=== PATIENT | male | born 1945 | race Caucasian/White ===

== ENCOUNTER 2019-12-30 10:33 | Emergency (ER) | payer OTHER, SELFPAY ==
--- NOTE | ~2019-12-30 | XR_ITS ---
EXAMINATION: XR hand LT min 3V DATE: 12/30/2019 11:15 INDICATION: Left hand pain. TECHNIQUE: 3 views of left hand were obtained. COMPARISON: None. FINDINGS: There is an oblique fracture of diaphysis of third metacarpal. The distal fracture fragment demonstrates one cortical width posterior displacement, 10 degrees ulnar angulation, and 19 degrees palmar angulation. 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 IMPRESSION: 1. Oblique fracture of diaphysis of third metacarpal. Reviewed, dictated and finalized at location A.
[2019-12-30 10:54] VITALS: BP 116/80; PULSE 68; RESP 17; TEMP 36.8; O2SAT 99
--- NOTE | 2019-12-30 11:03 | ED.GENADULT ---
HPI - General Adult General Chief complaint: Extremity Injury, Upper Stated complaint: swollen hand History of Present Illness HPI narrative: Mario is a previously healthy 74M that presented to the ED ambulating by himself with pain and swelling in his right hand after a fall. He was walking yesterday morning wearing his reading glasses when he tripped and fell. He did not hit his head or neck and has no pain there. He did not lose consciousness. Before the fall there was no lightheadedness, CP or SOB. He caught himself with the dorsal aspect of his left hand. Related Data Home Medications Medication Instructions Recorded Confirmed No Home Medications 12/30/19 12/30/19 Allergies Allergy/AdvReac Type Severity Reaction Status Date / Time No Known Allergies Allergy Verified 12/30/19 10:54 Review of Systems Constitutional: Constitutional: Reports no additional constitutional complaints Eyes: Eyes: Reports no additional eye complaints Cardiovascular: Cardiovascular: Reports no additional cardiovascular complaints Respiratory: Respiratory: Reports no additional respiratory complaints Gastrointestinal: Gastrointestinal: Reports no additional gastrointestinal complaints Musculoskeletal: Musculoskeletal: Reports as per HPI Integumentary/Breasts: Skin/Breast: Reports system reviewed and no additional complaints, except as docu Neurologic: Reports system reviewed and no additional complaints, except as documented Exam Const: General: no acute distress and alert Orientation/consciousness: patient oriented x3 Limitations: No altered mental status HENMT: Head: normal to inspection Eyes: Pupils: Equal, round and reactive pupils present Neck: Neck: normal visual inspection Other: able to touch chin to each shoulder, flex and extend without pain Resp: Effort & Inspection: normal respiratory effort and not labored Other: speaks in complete sentences without distress Cardio: Rate: regular rate Other: left radial pulse intact. Good capillary refill. Skin: General skin exam: normal color Rashes: no rashes Neuro: General: patient oriented x3 and moves all extremities Other: sensation intact throughout left hand Extrem: Other: Left hand was very swollen. 5/5 cylinder inspector strength. Able to oppose thumb to each finger. TTP over the 3rd metatarsal Psych: Mental Status: mental status grossly normal Course Course Emergency Course: Mario was seen and evaluated. Ordered radiographs. Denied meds for pain. Radiographs showed: EXAMINATION: XR hand LT min 3V DATE: 12/30/2019 11:15 INDICATION: Left hand pain. TECHNIQUE: 3 views of left hand were obtained. COMPARISON: None. FINDINGS: There is an oblique fracture of diaphysis of third metacarpal. The distal fracture fragment demonstrates one cortical width posterior displacement, 10 degrees ulnar angulation, and 19 degrees palmar angulation. 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 IMPRESSION: 1. Oblique fracture of diaphysis of third metacarpal. I [facility] that [facility] will contact the patient for an appointment tomorrow. He gave the number [phone] to schedule as well. He was placed in an OCL and discharged home. Vital Signs Vital signs: Vital Signs Temperature 36.8 C 12/30/19 10:54 Pulse Rate 68 12/30/19 10:54 Respiratory Rate 12/30/19 10:54 Blood Pressure 116/80 12/30/19 10:54 Pulse Oximetry 99 12/30/19 10:54 Temperature 36.8 C 12/30/19 10:54 Pulse Rate 12/30/19 10:54 Respiratory Rate 12/30/19 10:54 Blood Pressure 116/80 12/30/19 10:54 Pulse Oximetry 99 12/30/19 10:54 Medical Decision Making Vital Signs Vital Signs: Vital Signs Temperature 36.8 C 12/30/19 10:54 Pulse Rate 68 12/30/19 10:54 Respiratory Rate 12/30/19 10:54 Blood Pressure 116/80 12/30/19 10:54 Pulse Oximetry 99 12/30/19 10:54 Te
[2019-12-30 13:30] VITALS: RESP 16
--- NOTE | 2019-12-31 08:50 | PCCCNOTE ---
Spoke with Tracy on 12/31/19 @ 3080 and provided ED admission/discharge notification. ID Number for call [id number]
== END 2019-12-30 13:33 | disposition home or self-care (01) ==
PROVIDERS: Emergency Provider Family Medicine
DX: S62.302A Unspecified fracture of third metacarpal bone, right hand, initial encounter for closed fracture (principal); W19.XXXA Unspecified fall, initial encounter
CPT/HCPCS: 29125; 73130; 99283; 99284

== ENCOUNTER 2025-01-17 08:22 | Emergency (ER) | payer OTHER, SELFPAY ==
[2025-01-17 08:23] VITALS: BP 147/102; PULSE 91; RESP 18; TEMP 36.7; O2SAT 97
--- OUTSIDE RECORDS SUMMARY | 2025-01-17 08:24 | XMS_ITS | Referral Summary ---
Author Organization [facility] Address [address] [place] [address] Care Team Providers Care Ergonomics Engineer Name Role Phone No, Physician Primary Care Provider [phone] Encounters Date Type Department Care Team Description 11/09/2024 Plan of Care Documentation [facility] [address] [place] [address] [address]th [place] [address] [place] [address] 11/09/2024 10:30 AM CDT Therapy [facility] [address] [place] [address] 6th [place] [address] [place] [address] Laila Jackson OT Dupuytren's contracture of right hand (Primary Dx); Dupuytren's contracture of left hand 10/21/2024 11:00 AM CDT Office Visit 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
--- OUTSIDE RECORDS SUMMARY | 2025-01-17 08:24 | XMS_ITS | Clinical Summary ---
Author Organization [facility] Address [address] [place] [address] Care Team Providers Care Deputy Head Name Role Phone No, Physician Primary Care Provider [phone] Allergies No known active allergies Medications No known medications Active Problems No known active problems Encounters Date Type Department Care Team Description 11/09/2024 10:30 AM CDT Therapy [facility] Occupational Therapy [address] [place] [address] [address]th [place] [address] [place] [address] Laila Jackson OT Dupuytren's contracture of right hand (Primary Dx); Dupuytren's contracture of left hand 11/09/2024 Plan of Care Documentation [facility] Occupational Therapy [address] [place] [address] [address]th [place] [address] [place] [address] 10/21/2024 11:00 AM CDT Office Visit [facility] Orthopaedic Surgery [address] [place] [address] [address]th [place] [address] Murray Gutiérrez MD Dupuytren's contracture of right hand (Primary Dx); Dupuytren's contracture from Last 3 Months Social History Tobacco Use Types Packs/Day Years Used Date Smoking Tobacco: Never Smokeless Tobacco: Never Tobacco Cessation:Counseling Given: Not Answered Sex and Gender Information Value Date Recorded Sex Assigned at Not on file 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 Gender Identity Not on file Sexual Orientation Not on file Obstetrics History Plan of Treatment Health Maintenance Due Date Last Done Comments Depression Screening 1944 Fall Risk Assessment 1944 DTaP/Tdap/Td Vaccine (1 - Tdap) 12/13/1955 Hepatitis B Screening 1962 Pneumococcal vaccine 65+ (1 of 1 - PCV) 1994 Zoster Vaccine (1 of 2) 1994 Well Visit 65+ 2009 Covid-19 Vaccine ( season) 2024 08/13/2021, 03/13/2021, 02/20/2021 Influenza Vaccine (Season Ended) 2025 Insurance [place] [facility] Care Teams Deputy Head Relationship Specialty Start Date End Date No, Physician PCP - General 06/24/23
--- NOTE | 2025-01-17 08:38 | ED_ITS ---
HPI - General Adult General Chief complaint: Unspecified Stated complaint: WASP STING Time Seen by Provider: 01/17/25 08:37 Related Data Home Medications ?Medication ?Instructions ?Recorded ?Confirmed ?Last Taken ?Type No Home Medications 12/30/19 12/30/19 Unknown History Allergies Allergy/AdvReac Type Severity Reaction Status Date / Time No Known Allergies Allergy Verified 12/30/19 10:54 Course Vital Signs Vital signs: Vital Signs Temperature 36.7 C 01/17/25 08:23 Pulse Rate 91 01/17/25 08:23 Respiratory Rate 18 01/17/25 08:23 Blood Pressure 147/102 H 01/17/25 08:23 Pulse Oximetry 97 01/17/25 08:23 Oxygen Delivery Room Air 01/17/25 08:23 Temperature 36.7 C 01/17/25 08:23 Pulse Rate 91 01/17/25 08:23 Respiratory Rate 18 01/17/25 08:23 Blood Pressure 147/102 H 01/17/25 08:23 Pulse Oximetry 97 01/17/25 08:23 Oxygen Delivery Room Air 01/17/25 08:23 Medical Decision Making Vital Signs Vital Signs: Vital Signs Temperature 36.7 C 01/17/25 08:23 Pulse Rate 91 01/17/25 08:23 Respiratory Rate 18 01/17/25 08:23 Blood Pressure 147/102 H 01/17/25 08:23 Pulse Oximetry 97 01/17/25 08:23 Oxygen Delivery Room Air 01/17/25 08:23 Temperature 36.7 C 01/17/25 08:23 Pulse Rate 91 01/17/25 08:23 Respiratory Rate 18 01/17/25 08:23 Blood Pressure 147/102 H 01/17/25 08:23 Pulse Oximetry 97 01/17/25 08:23 Oxygen Delivery Room Air 01/17/25 08:23 Discharge Plan Discharge Clinical Impression: Cellulitis Qualifiers: Site of cellulitis: extremity Site of cellulitis of extremity: upper extremity Laterality: right Qualified Code(s): L03.113 - Cellulitis of right upper limb Patient Disposition: Home Condition: Stable Instructions: Antibiotic Form Patient Language: [place] Prescriptions: No Action No Home Medications Follow-up/Referrals: UNKNOWN,DOCTOR [Primary Care Provider] -
--- NOTE | 2025-01-17 08:39 | ED_ITS ---
HPI - Skin/Abscess/Foreign Bdy General Chief complaint: Unspecified Stated complaint: WASP STING Time Seen by Provider: 01/17/25 08:37 Source: patient and family Mode of arrival: ambulatory Limitations: no limitations History of Present Illness HPI narrative: Patient is an 79-year-old male with a left side upper extremity redness and swelling secondary to a wasp sting 2 days ago. There is mild pain associated with this site. Patient has been monitoring the area for 2 days and it is getting worse and darker red. No fever or chills. MD complaint: rash and discoloration Onset (ago): day(s) ( Two) Tetanus up to date: no Location: LUE ( hand up to distal elbow) Severity: moderate Severity scale (1-10): 2 Quality: sharp Pain Consistency: constant Relieving factors: immobilization Exacerbating factors: palpation and movement Context: other ( patient has left forearm redness and swelling since a wasp bite 2 days ago without signs of sepsis) Associated symptoms: denies other symptoms Treatments prior to arrival: none Related Data Allergies Allergy/AdvReac Type Severity Reaction Status Date / Time No Known Allergies Allergy Verified 01/17/25 09:05 Review of Systems Review of Systems: All systems reviewed & are unremarkable except as noted in HPI and below Constitutional: Constitutional: Reports no additional constitutional complaints Eyes: Eyes: Reports no additional eye complaints ENT: Reports system reviewed and no additional complaints, except as documented Cardiovascular: Cardiovascular: Reports no additional cardiovascular complaints Respiratory: Respiratory: Reports no additional respiratory complaints Gastrointestinal: Gastrointestinal: Reports no additional gastrointestinal complaints Genitourinary: Genitourinary: Reports no additional male genitourinary complaints Musculoskeletal: Musculoskeletal: Reports no additional musculoskeletal complaints Integumentary/Breasts: Skin/Breast: Reports system reviewed and no additional complaints, except as docu Neurologic: Reports system reviewed and no additional complaints, except as documented Psychiatric: Psychiatric: Reports no additional psychiatric complaints Endocrine: Endocrine: Reports no additional endocrine complaints Hematologic/Lymphatic: Hematologic/Lymphatic: Reports no additional hematologic/lymphatic complaints Allergic/Immunologic: Allergic/Immunologic: Reports no additional allergic/immunologic complaints Exam Const: General: healthy appearing Nutritional Appearance: well nourished Orientation/consciousness: patient oriented x3 HENMT: Head: normal to inspection Ears: external ears normal Face/Nose/Sinus: Normal external nose present Eyes: Conjunctivae: conjunctivae normal Pupils: Equal, round and reactive p upils present EOM: EOMs intact bilaterally Neck: Neck: normal visual inspection Chest: Chest palpation & inspection: normal inspection of the chest Resp: Effort & Inspection: normal respiratory effort and not labored Auscultation: clear to auscultation bilaterally and no crackles Cardio: Rate: regular rate Rhythm: regular rhythm Heart sounds: no murmurs GI: Inspection: non-distended GI Palp: Yes Soft to palpation and No Tenderness to palpation present (GI) Auscultation: normal bowel sounds : General: Yes bladder normal to palpation Back/Spine/Pelvis: Back: no CVA tenderness Skin: General skin exam: No normal color Other: left forearm is red with erythema semi circular of the forearm but not circumferential; there are 3 blisters that are small near the nidus of infection from the insect bite; entire hand on the left and up to the distal elbow region has swelling; distally neuro and vascularly intact with good finger movement Neuro: General: patient oriented x3, moves all extremities, no meningeal signs, no focal motor deficits and CN's II-XI intact bilaterally Cranial nerves: Yes Nystagmus not present Speech: normal speech Gait exam (Neuro): Normal gait present Extrem: General: abnormal to inspection ( see skin exam) Psych: Mental Status: mental status grossly normal Affect: normal affect Attitude: cooperative Course Vital Signs Vital signs: Vital Signs Temperature 36.7 C 01/17/25 08:23 Pulse Rate 91 01/17/25 08:23 Respiratory Rate 18 01/17/25 08:23 Blood Pressure 147/102 H 01/17/25 08:23 Pulse Oximetry 97 01/17/25 08:23 Oxygen Delivery Room Air 01/17/25 08:23 Temperature 36.7 C 01/17/25 08:23 Pulse Rate 91 01/17/25 08:23 Respiratory Rate 18 01/17/25 08:23 Blood Pressure 147/102 H 01/17/25 08:23 Pulse Oximetry 97 01/17/25 08:23 Oxygen Delivery Room Air 01/17/25 08:23 MDM - Skin/Abscess/Foreign Bdy MDM Narrative Medical decision making narrative: patient is an 79-year-old male with left forearm redness and swelling after insect bite 2 days ago. We will give a tetanus booster. We will give Rocephin 1 g at this time IM. We will switch to Bactrim orally. Patient was concerned about prior C diff and we will choose Bactrim and probiotics. Discharge Plan Discharge Clinical Impression: Cellulitis Qualifiers: Site of cellulitis: extremity Site of cellulitis of extremity: upper extremity Laterality: right Qualified Code(s): L03.113 - Cellulitis of right upper limb Allergic reaction Qualifiers: Encounter type: initial encounter Qualified Code(s): T78.40XA - Allergy, unspecified, initial encounter Patient Disposition: Home Condition: Stable Instructions: Antibiotic Form, Cellulitis (ED) Patient Language: Amharic Prescriptions: New sulfamethoxazole-trimethoprim [Bactrim DS] 800-160 mg tablet 1 tablet PO BID 10 Days Qty: 20 0RF Lactobacillus acidophilus 1 billion cell tablet 1,000 mmu cells PO QID 10 Days Qty: 40 0RF Follow-up/Referrals: UNKNOWN,DOCTOR [Primary Care Provider] - Time of Disposition: 08:57
--- NOTE | 2025-01-17 08:41 | PC.NURSE ---
FRIEND AT THE BEDSIDE. DR COHEN AT THE BEDSIDE
[2025-01-17] MEDS: cefTRIAXone 1 GM, LIDOCAINE 1% LOCAL INJ 2.1 ML IM (08:54)
[2025-01-17] MEDS: TETANUS,DIPHTHERIA,AC PERTUSSIS ADULT 0.5 ML (ADACEL) IM (08:55)
--- OUTSIDE RECORDS SUMMARY | 2025-01-17 09:15 | XMS_ITS | Clinical Summary ---
Author Organization [facility] Address [address] [place] [address] Care Team Providers Care Railroad Baggage Porter Name Role Phone No, Physician Primary Care Provider [phone] Allergies No known active allergies Medications No known medications Active Problems No known active problems Encounters Date Type Department Care Team Description 11/09/2024 10:30 AM CDT Therapy [facility] Occupational Therapy [address] [place] [address] 6th [place] [address] [place] [address] Laila Jackson OT Dupuytren's contracture of right hand (Primary Dx); Dupuytren's contracture of left hand 11/09/2024 Plan of Care Documentation [facility] Occupational Therapy [address] [place] [address] 6th [place] [address] [place] [address] 10/21/2024 11:00 AM CDT Office Visit [facility] Orthopaedic Surgery [address] [place] [address] 6th [place] [address] Murray Gutiérrez MD Dupuytren's contracture of right hand (Primary Dx); Dupuytren's contracture from Last 3 Months Social History Tobacco Use Types Packs/Day Years Used Date Smoking Tobacco: Never Smokeless Tobacco: Never Tobacco Cessation:Counseling Given: Not Answered Sex and Gender Information Value Date Recorded Sex Assigned at Not on file 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
--- OUTSIDE RECORDS SUMMARY | 2025-01-17 09:15 | XMS_ITS | Referral Summary ---
Author Organization [facility] Address [address] [place] [address] Care Team Providers Care Scada Technician Name Role Phone No, Physician Primary Care Provider [phone] Encounters Date Type Department Care Team Description 11/09/2024 Plan of Care Documentation [facility] Occupational Therapy [address] [place] [address] [address] [place] [address] [place] [address] 11/09/2024 10:30 AM CDT Therapy [facility] Occupational Therapy [address] [place] [address] [address]th [place] [address] [place] [address] Laila Jackson OT Dupuytren's contracture of right hand (Primary Dx); Dupuytren's contracture of left hand 10/21/2024 11:00 AM CDT Office Visit [facility] Orthopaedic Surgery [address] [place] [address] [address]th [place] [address] [place] [address] Murray Gutiérrez MD Dupuytren's contracture of right [...] on file 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
[2025-01-17 09:16] VITALS: BP 156/106; PULSE 79; RESP 18; O2SAT 100
== END 2025-01-17 09:16 | disposition home or self-care (01) ==
LOC: CHSED 09:13
PROVIDERS: Emergency Provider Emergency Medicine
DX: S50.862A Insect bite (nonvenomous) of left forearm, initial encounter (principal); L03.113 Cellulitis of right upper limb; W57.XXXA Bitten or stung by nonvenomous insect and other nonvenomous arthropods, initial encounter; Z23 Encounter for immunization
CPT/HCPCS: 90471; 90715; 96372; 99283; J0696; J2003